=== PATIENT | male | born 1990 | race Two or more races ===

== ENCOUNTER 2021-11-27 01:20 | Emergency (ER) | payer SELFPAY ==
[~2021-11-27] VITALS: Ht 170.2 cm; Wt 76.0 kg
[2021-11-27 01:24] VITALS: BP 163/90
== END 2021-11-27 03:07 | disposition home or self-care (01) ==
LOC: ER 01:20
DX: R68.84 Jaw pain (principal); Z00.00 Encounter for general adult medical examination without abnormal findings
CPT/HCPCS: 99283